=== PATIENT | female | born 1990 | race Caucasian/White ===

== ENCOUNTER 2024-06-05 17:00 | Emergency (ER) | payer MEDICAID ==
[~2024-06-05] VITALS: Ht 167.6 cm; Wt 73.0 kg
[2024-06-05 17:15] VITALS: O2SAT 95
[2024-06-05] MEDS: LEVETIRACETAM 500MG PREMIX 100 ML IV ONE ×2 (18:23→19:16)
[2024-06-05] MEDS: LACTATED RINGERS 1,000 ML IV SCH (18:24)
[2024-06-05 18:29] LABS: BASOPHILS % 0.4 % (0.0-2.0); EOSINOPHILS % 1.6 % (0.0-5.0); HEMATOCRIT. 32.2 % (36.0-48.0); HEMOGLOBIN. 10.3 g/dL (12.0-16.0); LYMPHOCYTES % 13.9 % (20.0-50.0); MEAN CORPUSCULAR HEMOGLOBIN 21.5 pg (28.0-32.0); MEAN CORPUSCULAR VOLUME 67.2 fL (81.0-99.0); MEAN PLATELET VOLUME 8.5 fl (7.4-10.4); MONOCYTES % 6.1 % (2.0-8.0); PLATELET 165 x1000/uL (130-400); RED BLOOD CELL COUNT 4.79 mill/uL (4.2-5.4); RED CELL DISTRIBUTION WIDTH 21.3 % (11.6-14.6); WHITE BLOOD COUNT 10.5 x1000/uL (4.5-11.0)
[2024-06-05 18:30] LABS: ADD RBC MORPHOLOGY YES; DIFFERENTIAL COMMENT 1
[2024-06-05 18:31] LABS: CHLORIDE 106 mEq/L (98-107); POTASSIUM 3.5 mEq/L (3.5-5.1); SODIUM 139 mEq/L (136-145)
[2024-06-05 18:32] LABS: CARBON DIOXIDE 23 mEq/L (21-32)
[2024-06-05 18:33] LABS: CALCIUM 9.3 mg/dL (8.7-10.4)
[2024-06-05 18:38] LABS: GLUCOSE 98 mg/dL (70-105); UREA NITROGEN BLOOD 10 mg/dL (9-23)
[2024-06-05 18:39] LABS: ALANINE AMINOTRANSFERASE 12 IU/L (10-49); ALBUMIN 4.7 g/dL (3.2-4.8); ASPARTATE AMINOTRANSFERASE 16 IU/L (<34)
[2024-06-05 18:40] LABS: BILIRUBIN TOTAL 0.2 mg/dL (0.1-1.0); PROTEIN TOTAL 7.7 g/dL (6.0-8.3)
[2024-06-05 18:54] LABS: ANISOCYTOSIS 2+; HYPOCHROMASIA 2+; MICROCYTOSIS 3+; OVALOCYTES 1+; PLATELET ESTIMATE NORMAL
[2024-06-05] MEDS: ACETAMINOPHEN 325MG TABLET PO ONE (19:02)
[2024-06-05 19:07] LABS: HCG SCREEN NEGATIVE
[2024-06-05 21:00] VITALS: BP 107/59; PULSE 91; RESP 18; TEMP 36.78072; O2SAT 98
== END 2024-06-05 21:36 | disposition home or self-care (01) ==
LOC: ER 17:00
DX: G40.909 Epilepsy, unspecified, not intractable, without status epilepticus (principal); I10 Essential (primary) hypertension
CPT/HCPCS: 99285; 96365; 70450; 96367; 80053; 84703; 85025; 36415; 93005; J1953